=== PATIENT | male | born 1955 | race Caucasian/White ===

== ENCOUNTER → 2018-11-18 | Outpatient (CLI) | payer BC ==
[~2018-11-18] MED LIST: CEPH500C PO; DOCU50CA9 PO; FAMO40TA57 PO; HYDR-2155 PO; SULF1TAB24 PO
--- NOTE | 2018-11-18 08:44 | RAD ---
Complete abdomen ultrasound study Clinical indications: Abnormal LFTs. FINDINGS: The study is limited due to the patient's larger body habitus and overlying bowel gas. The pancreas and abdominal aorta are poorly visualized as a result. The intrahepatic portion of the IVC is visualized and unremarkable. The liver measures 18.2 cm in length which is mildly enlarged. There is diffuse attenuation of sound throughout the liver which may be seen with fatty infiltration of the liver. This decreases the sensitivity of sonography to detect focal hepatic lesions. No focal hepatic mass is seen otherwise. The gallbladder is normal without gallstones. The extra hepatic bile that measures 4 mm in caliber which is normal. The length of the right kidney is 13.3 cm and the length of the left kidney is 13.7 cm. No hydronephrosis or renal mass or perinephric fluid collection is seen on either side. The spleen measures 12.9 cm in length which is at the upper limits of normal. No ascites is seen. IMPRESSION: Hepatomegaly. Fatty infiltration of the liver. Midline structures are poorly visualized. Electronically signed by: Jake Traylor MD (11/18/2018 8:41 AM) [facility], [id number]
== END | disposition home or self-care (01) ==
LOC: US 07:42
PROVIDERS: ATTEND Family Medicine
DX: K76.0 Fatty (change of) liver, not elsewhere classified (principal); R94.5 Abnormal results of liver function studies
CPT/HCPCS: 76700